=== PATIENT | female | born 1960 | race African-American/Black ===

== ENCOUNTER 2017-04-21 15:37 | Emergency (ER) | payer MEDICARE, MEDICAID ==
[2017-04-21 17:01] LABS: ADD MAN DIFF? NO
[2017-04-21 17:03] LABS: BASO # 0.1 x10^3/uL (0.0-0.2); BASO % 1 % (0-3); EOS # 0.3 x10^3/uL (0.0-0.7); EOS % 2 % (0-3); HEMATOCRIT 44.1 % (36.0-47.0); HEMOGLOBIN 14.7 g/dL (12.0-15.5); LYMPH # 3.7 x10^3/uL (1.0-4.8); LYMPH % 29 % (24-48); MEAN CORPUSCULAR HEMOGLOBIN 30 pg (25-35); MEAN CORPUSCULAR HGB CONC 33 g/dL (31-37); MEAN CORPUSCULAR VOLUME 89 fL (79-100); MONO # 0.9 x10^3/uL (0.0-1.1); MONO % 7 % (0-9); NEUT # 7.8 x10^3uL (1.8-7.7); NEUT % 61 % (31-73); PLATELET COUNT 247 x10^3/uL (140-400); RED BLOOD COUNT 4.93 x10^6/uL (3.50-5.40); RED CELL DISTRIBUTION WIDTH 14.1 % (11.5-14.5); WHITE BLOOD COUNT 12.9 x10^3/uL (4.0-11.0)
[2017-04-21 17:13] LABS: ANION GAP 15 (6-14); BLOOD UREA NITROGEN 8 mg/dL (7-20); CALCIUM 9.3 mg/dL (8.5-10.1); CARBON DIOXIDE 25 mmol/L (21-32); CHLORIDE 99 mmol/L (98-107); CREATININE 0.8 mg/dL (0.6-1.0); GFR 89.1; GLUCOSE 109 mg/dL (70-99); POTASSIUM 3.1 mmol/L (3.5-5.1); SODIUM 139 mmol/L (136-145)
[2017-04-21 17:18] LABS: ALBUMIN 3.4 g/dL (3.4-5.0); ALK PHOS 110 U/L (46-116); ALT (SGPT) 50 U/L (14-59); AST (SGOT) 41 U/L (15-37); DIRECT BILIRUBIN 0.1 mg/dL (0.0-0.2); TOTAL BILIRUBIN 0.6 mg/dL (0.2-1.0); TOTAL PROTEIN 8.9 g/dL (6.4-8.2)
[2017-04-21 17:57] LABS: C-REACTIVE PROTEIN 84.2 mg/L (0-3.3)
[2017-04-21 19:11] LABS: SEDIMENTATION RATE 90 (0-25)
[2017-04-21] MEDS: LIDOCAINE WITH 8.4% SOD BICARB 3 ML DISP.SYRIN. INJ (19:15)
== END 2017-04-21 20:37 | disposition home or self-care (01) ==
LOC: ER 15:37
DX: M25.461 Effusion, right knee (principal)
CPT/HCPCS: 20610; 36415; 73564; 80048; 80076; 85025; 85651; 86140; 87071; 87075; 87205; 89060; 93971; 99285-25